=== PATIENT | male | born 1965 | race Caucasian/White ===

== ENCOUNTER → 2016-05-22 | Outpatient (CLI) | payer OTHER | LOC: RAD 13:37 | DX: J20.9 Acute bronchitis, unspecified (principal) | CPT/HCPCS: 71020 ==

== ENCOUNTER → 2016-06-22 | Outpatient (CLI) | payer OTHER | LOC: HEART 5 09:00 | DX: R07.9 Chest pain, unspecified (principal) | CPT/HCPCS: 78452; 93306; A9502; J2785 ==